=== PATIENT | male | born 1990 | race American Indian/Alaskan Native ===

== ENCOUNTER 2017-07-23 04:44 | Emergency (ER) | payer SELFPAY ==
[2017-07-23 05:21] VITALS: TEMP 98.1
--- NOTE | 2017-07-23 05:54 | ED PDOC ---
Arrival/HPI - General Chief Complaint: Lower Extremity Problem/Injury Time Seen by Provider: 07/23/17 05:10 Historian: Patient - History of Present Illness Narrative History of Present Illness (Text): 07/23/17 05:51 Patel George is a 26 year old male who presents to the emergency department complaining of discomfort to the bottom of his feet bilaterally today. Patient notes he stands frequently and walks long distances. Patient denies any decreased range of motion, weakness/numbness/tinging in the extremity, or any other complaints. Symptom Onset: Gradual Symptom Course: Unchanged Activities at Onset: Light Context: Home Past Medical History - Provider Review Nursing Documentation Reviewed: Yes - Cardiac Hx Cardiac Disorders: No - Pulmonary Hx Respiratory Disorders: No - Neurological Hx Neurological Disorder: No - Psychiatric Hx Substance Use: No Family/Social History - Physician Review Nursing Documentation Reviewed: Yes Family/Social History: Unknown Family HX Smoking Status: Heavy Smoker > 10 Cigarettes Daily Hx Alcohol Use: Yes Frequency of alcohol use: Socially Hx Substance Use: No Allergies/Home Meds Allergies/Adverse Reactions: Allergies No Known Allergies Allergy (Verified 07/23/17 05:16) Review of Systems - Physician Review All systems were reviewed & negative as marked: Yes - Review of Systems Constitutional: Normal. absent: Fevers Eyes: Normal ENT: Normal Respiratory: Normal. absent: SOB, Cough Cardiovascular: Normal. absent: Chest Pain Gastrointestinal: Normal. absent: Abdominal Pain, Diarrhea, Nausea, Vomiting Genitourinary Male: Normal. absent: Dysuria, Frequency, Hematuria, Urinary Output Changes Musculoskeletal: Other (+discomfort to soles of feet). absent: Back Pain, Neck Pain Skin: Normal. absent: Rash Neurological: Normal. absent: Headache, Dizziness Endocrine: Normal Hemo/Lymphatic: Normal Psychiatric: Normal Physical Exam Vital Signs Reviewed: Yes Vital Signs Temp Pulse Resp BP Pulse Ox 07/23/17 06:28 86 16 127/91 H 100 07/23/17 05:16 98.1 F 82 18 134/80 97 Temperature: Afebrile Blood Pressure: Normal Pulse: Regular Respiratory Rate: Normal Appearance: Positive for: Well-Appearing, Non-Toxic, Comfortable Pain Distress: None Mental Status: Positive for: Alert and Oriented X 3 - Systems Exam Head: Present: Atraumatic, Normocephalic Pupils: Present: PERRL Extroacular Muscles: Present: EOMI Conjunctiva: Present: Normal Mouth: Present: Moist Mucous Membranes Neck: Present: Normal Range of Motion Respiratory/Chest: Present: Clear to Auscultation, Good Air Exchange. No: Respiratory Distress, Accessory Muscle Use Cardiovascular: Present: Regular Rate and Rhythm, Normal S1, S2. No: Murmurs Back: Present: Normal Inspection Upper Extremity: Present: Normal Inspection. No: Cyanosis, Edema Lower Extremity: Present: Normal Inspection, NORMAL PULSES, Neurovascularly Intact. No: Edema, CALF TENDERNESS, Juan Daniel's Sign, Swelling, Erythema, Deformity Neurological: Present: GCS=15, CN II-XII Intact, Speech Normal, Motor Func Grossly Intact, Normal Sensory Function Skin: Present: Warm, Dry, Normal Color. No: Rashes Psychiatric: Present: Alert, Oriented x 3, Normal Insight, Normal Concentration Medical Decision Making ED Course and Treatment: 07/23/17 05:51 Impression: 26 year old male complaining of discomfort to soles of bilateral feet today. Differential Diagnosis included but are not limited to: plantar fasciitis Plan: -- Reassess and disposition Progress Notes: - Medication Orders Current Medication Orders: Discontinued Medications Ibuprofen (Motrin Tab) 400 mg PO STAT STA Stop: 07/23/17 06:11 Last Admin: 07/23/17 06:24 Dose: 400 mg MAR Pain/Vitals Document 07/23/17 06:24 COREY (Rec: 07/23/17 06:28 COREY [id number]) Pain Reassessment Is This A Pain ReAssessment? No - Scribe Statement The provider has reviewed the documentation as recorded by the Su Ferguson Provider Scribe Attestation: All medical record entries made by the Abrahamibmagda were at my direction and personally dictated by me. I have reviewed the chart and agree that the record accurately reflects my personal performance of the history, physical exam, medical decision making, and the department course for this patient. I have also personally directed, reviewed, and agree with the discharge instructions and disposition. Disposition/Present on Arrival - Present on Arrival Any Indicators Present on Arrival: No History of DVT/PE: No History of Uncontrolled Diabetes: No Urinary Catheter: No History of Decub. Ulcer: No History Surgical Site Infection Following: None - Disposition Have Diagnosis and Disposition been Completed?: Yes Diagnosis: Plantar fasciitis, bilateral Disposition: HOME/ ROUTINE Disposition Time: 06:11 Patient Plan: Discharge Condition: GOOD Discharge Instructions (ExitCare): Heel Pain (Caused by Plantar Fasciitis) (DC) , Plantar Fasciitis Exercises Additional Instructions: Wear proper arched shoes/foot support/avoid prolonged walking/medication as prescribed/follow up with your doctor this week Prescriptions: Ibuprofen [Motrin] 400 mg PO Q6 PRN #12 tab PRN Reason: Pain, Mild (1-3) Forms: [employer] ([place])
[2017-07-23 06:29] VITALS: BP 127/91; PULSE 86; RESP 16; O2SAT 100
== END 2017-07-23 06:28 | disposition home or self-care (01) ==
LOC: ED 04:44
DX: M72.2 Plantar fascial fibromatosis (principal); F17.210 Nicotine dependence, cigarettes, uncomplicated